=== PATIENT | female | born 1990 | race African-American/Black ===

== ENCOUNTER 2020-12-23 14:34 | Inpatient (IN) | payer OTHER ==
[~2020-12-23] VITALS: Ht 170.2 cm; Wt 97.7 kg
[2020-12-23] MEDS: LR 1,000 ML IV SCH ×2 (05:30→18:44)
[2020-12-23] MEDS ORDERED: PRENTAB9 PO (15:05)
[2020-12-23] MEDS ORDERED: HOME MED LIST COMPLETE! XX SCH (15:05)
[2020-12-23] MEDS ORDERED: LACTATED RINGER'S 1000 ML IV STA (15:07)
[2020-12-23] MEDS ORDERED: LIDOCAINE 1% MDV 20ML VIAL INFIL PRN (15:10)
[2020-12-23] MEDS ORDERED: TRANEXAMIC ACID INJection 1,000 MG in NS 100 ML IV PRN (15:10)
[2020-12-23] MEDS ORDERED: CARBOPROST TROMETHAMINE 250 MCG/ML AMP IM PRN (15:10)
[2020-12-23] MEDS ORDERED: METHYLERGONOVINE MALEATE 0.2 MG/ML VIAL (J2210) IM PRN (15:10)
[2020-12-23] MEDS ORDERED: OXYTOCIN DRIP 30 UNITS in IV 1 EA IV PRN ×4 (15:10)
[2020-12-23] MEDS ORDERED: miSOPROStol 25MCG 1/4 TABLET PO ONE (15:40)
[2020-12-23 15:55] VITALS: BP 118/58
[2020-12-23 16:44] VITALS: BP 100/55
[2020-12-23 17:51] LABS: HEMATOCRIT 39.3 % (36.0-47.0); HEMOGLOBIN 12.9 g/dl (12.0-15.5); MEAN CORPUSCULAR HEMOGLOBIN 31.6 pg (27.0-33.0); MEAN CORPUSCULAR HGB CONC 32.8 g/dl (32.0-36.5); MEAN CORPUSCULAR VOLUME 96.3 fl (80.0-96.0); PLATELET COUNT, AUTOMATED 249 10^3/uL (150-450); RED BLOOD COUNT 4.08 10^6/uL (4.00-5.40); WHITE BLOOD COUNT 8.9 10^3/uL (4.0-10.0)
[2020-12-23 18:01] VITALS: BP 125/65
[2020-12-23 19:14] VITALS: BP 117/55
[2020-12-23] MEDS ORDERED: BUPIVACAINE HCL 0.25% 10ML VIAL SC SCH (20:35)
[2020-12-23] MEDS ORDERED: ceFAZolin SOD 2 GM in IV 1 EA IV ONE (20:35)
[2020-12-23] MEDS ORDERED: BICITRA 30ML SOLN UDC PO ONE (20:35)
[2020-12-23] MEDS ORDERED: ePHEDrine SULFATE 25 MG/5 ML(5MG/ML) SYRINGE As Ordered ONE (20:49)
[2020-12-23] MEDS ORDERED: PHENYLephrine 500MCG 5ML (100MCG/ML) SYRINGE As Ordered ONE (20:49)
[2020-12-23] MEDS ORDERED: OXYTOCIN INJ 10 UNITS/ML VIAL (J2590) As Ordered ONE ×2 (20:51→20:53)
[2020-12-23] MEDS ORDERED: MORPHINE PRES-FREE INJ 10 MG/10 ML VIAL (J2274) As Ordered ONE (20:54)
[2020-12-23] MEDS ORDERED: KETOROLAC 60MG 2ML VIAL As Ordered ONE (21:17)
[2020-12-23] MEDS ORDERED: ONDANSETRON 4MG/2ML VIAL As Ordered ONE (21:17)
[2020-12-23] MEDS ORDERED: NALBUPHINE HCL 10 MG/ML AMP (J2300) IV PRN (21:29)
[2020-12-23] MEDS ORDERED: METOCLOPRAMIDE INJ 10MG/2ML VIAL (J2765 PER 1) IV PRN ×2 (21:29→23:00)
[2020-12-23] MEDS ORDERED: diphenhydrAMINE 50MG/ML VIAL (J1200) IV PRN (21:29)
[2020-12-23] MEDS ORDERED: ONDANSETRON 4MG/2ML VIAL IV PRN ×2 (21:29→23:00)
[2020-12-23] MEDS ORDERED: NALOXONE INJ 0.4MG/1ML VIAL (J2310 PER 1MG) IV PRN ×2 (21:29)
[2020-12-23 22:17] LABS: CORD GAS HCO3 A 25.4 MEQ/L; CORD GAS O2 SAT A 55.6 %; CORD GAS PCO2 A 58.5 mmHg; CORD GAS PH A 7.255 UNITS; CORD GAS PO2 A 25.3 mmHg; CORD GAS TCO2 A 27.2 MEQ/L
[2020-12-23 22:20] LABS: CORD GAS ABE V -1.7; CORD GAS HCO3 V 23.9 MEQ/L; CORD GAS O2 SAT V 92.6 %; CORD GAS PCO2 V 43.7 mmHg; CORD GAS PH V 7.356 UNITS; CORD GAS PO2 V 52.6 mmHg; CORD GAS SBC V 22.9 MEQ/L; CORD GAS TCO2 V 25.3 MEQ/L
[2020-12-23] MEDS ORDERED: LR 1,000 ML IV SCH (23:00)
[2020-12-23] MEDS ORDERED: PERCOCET 5MG/325MG TAB PO PRN (23:00)
[2020-12-23] MEDS ORDERED: fentaNYL 100 MCG/2 ML INJECTION IV PRN (23:00)
[2020-12-23] MEDS ORDERED: ANUSOL HC CREAM 30GM TOP PRN (23:10)
[2020-12-23] MEDS ORDERED: ACETAMINOPHEN TAB 650MG DOSE (2X325MG) PO PRN (23:10)
[2020-12-23] MEDS ORDERED: ACETAMINOPHEN 500 MG TAB PO PRN (23:10)
[2020-12-23] MEDS ORDERED: oxyCODONE 5MG TAB PO PRN (23:10)
[2020-12-24] VITALS (10 sets, daily range): BP systolic 115–147; BP diastolic 53–72
[2020-12-24] MEDS: IBUPROFEN 800 MG TAB PO SCH ×3 (06:00→21:45)
[2020-12-24] MEDS: LR 1,000 ML IV SCH (07:38)
[2020-12-24 07:48] LABS: HEMATOCRIT 33.6 % (36.0-47.0); MEAN CORPUSCULAR HEMOGLOBIN 31.2 pg (27.0-33.0); MEAN CORPUSCULAR HGB CONC 32.4 g/dl (32.0-36.5); MEAN CORPUSCULAR VOLUME 96.3 fl (80.0-96.0); PLATELET COUNT, AUTOMATED 223 10^3/uL (150-450); RED BLOOD COUNT 3.49 10^6/uL (4.00-5.40); WHITE BLOOD COUNT 13.8 10^3/uL (4.0-10.0)
[2020-12-24 08:00] LABS: HEMOGLOBIN 10.9 g/dl (12.0-15.5)
[2020-12-24 08:10] LABS: ALBUMIN 2.2 GM/DL (3.2-5.2); ALT/SGPT 14 U/L (12-78); BILIRUBIN,TOTAL 0.6 MG/DL (0.2-1.0); BLOOD UREA NITROGEN 8 MG/DL (7-18); CALCIUM LEVEL 8.8 MG/DL (8.5-10.1); CARBON DIOXIDE LEVEL 24 MEQ/L (21-32); CHLORIDE LEVEL 108 MEQ/L (98-107); GLOMERULAR FILTRATION RATE > 60.0 (>60); GLUCOSE, FASTING 99 MG/DL (70-100); POTASSIUM SERUM 4.2 MEQ/L (3.5-5.1); SODIUM LEVEL 140 MEQ/L (136-145); TOTAL PROTEIN 5.4 GM/DL (6.4-8.2)
[2020-12-24] MEDS: DOCUSATE SODIUM 100MG CAPSULE PO SCH ×2 (08:40→21:45)
[2020-12-24] MEDS: CLINDAMYCIN 150MG CAPSULE PO SCH ×3 (08:42→21:45)
[2020-12-24] MEDS: PRENATAL VITAMINS CHEWABLE TABLET PO SCH (08:42)
[2020-12-24] MEDS ORDERED: LR 500 ML IV ONE (10:25)
[2020-12-24] MEDS: oxyCODONE 5MG TAB PO PRN (18:41)
[2020-12-24] MEDS: SIMETHICONE 80MG CHEW TAB PO PRN (19:36)
[2020-12-25] MEDS: oxyCODONE 5MG TAB PO PRN ×2 (01:21→08:18)
[2020-12-25 02:00] VITALS: BP 129/59
[2020-12-25] MEDS: IBUPROFEN 800 MG TAB PO SCH ×2 (05:08→14:09)
[2020-12-25 06:00] VITALS: BP 125/58
[2020-12-25] MEDS: PRENATAL VITAMINS CHEWABLE TABLET PO SCH (07:52)
[2020-12-25] MEDS: DOCUSATE SODIUM 100MG CAPSULE PO SCH (07:52)
[2020-12-25] MEDS: CLINDAMYCIN 150MG CAPSULE PO SCH (07:52)
[2020-12-25] MEDS: SIMETHICONE 80MG CHEW TAB PO PRN (08:57)
== END 2020-12-25 14:50 | disposition home or self-care (01) | DRG 772 ==
LOC: M LDI 14:34 → M OBS 12-24 00:16
PROVIDERS: ADMIT Registered Nurse Maternal Newborn; ATTEND Registered Nurse Maternal Newborn
PROC: 3E0P7GC Introduction of Other Therapeutic Substance into Female Reproductive, Via Natural or Artificial Opening (ICD-10-PCS; 2020-12-23)
PROC: 0U9MXZZ Drainage of Vulva, External Approach (ICD-10-PCS; 2020-12-23)
PROC: 10D00Z1 Extraction of Products of Conception, Low, Open Approach (ICD-10-PCS; principal; 2020-12-23 20:45)
DX: O36.5930 Maternal care for other known or suspected poor fetal growth, third trimester, not applicable or unspecified (principal); N76.4 Abscess of vulva; O99.72 Diseases of the skin and subcutaneous tissue complicating childbirth; Z37.0 Single live birth; Z3A.38 38 weeks gestation of pregnancy; O99.214 Obesity complicating childbirth; E66.9 Obesity, unspecified; O76 Abnormality in fetal heart rate and rhythm complicating labor and delivery

== ENCOUNTER → 2021-02-02 | Outpatient (CLI) | payer OTHER ==
[~2021-02-02] MED LIST: PRENTAB9 PO
[2021-02-02 15:47] LABS: BASO % 0.3 % (0.0-1.0); EOS # 0.1 10^3/uL (0.0-0.5); EOS % 1.1 % (0.0-3.0); HEMATOCRIT 36.3 % (36.0-47.0); HEMOGLOBIN 11.5 g/dl (12.0-15.5); LYMPH # 1.3 10^3/uL (1.5-5.0); LYMPH % 20.8 % (24.0-44.0); MEAN CORPUSCULAR HEMOGLOBIN 30.6 pg (27.0-33.0); MEAN CORPUSCULAR HGB CONC 31.7 g/dl (32.0-36.5); MEAN CORPUSCULAR VOLUME 96.5 fl (80.0-96.0); MONO # 0.5 10^3/uL (0.0-0.8); MONO % 7.4 % (2.0-8.0); NEUTROPHILS # 4.4 10^3/uL (1.5-8.5); NEUTROPHILS % 70.1 % (36.0-66.0); PLATELET COUNT, AUTOMATED 293 10^3/uL (150-450); RED BLOOD COUNT 3.76 10^6/uL (4.00-5.40); WHITE BLOOD COUNT 6.3 10^3/uL (4.0-10.0)
[2021-02-02 15:54] LABS: INR 1.06; PROTHROMBIN TIME 14.2 SECONDS (12.7-14.5)
[2021-02-02 15:55] LABS: PARTIAL THROMBOPLASTIN TIME 33.7 SECONDS (25.9-37.0)
--- NOTE | 2021-02-02 16:00 | REP ---
INDICATION: ABN UTERINE VAG BLEED 6WKS POST PAR W/ C SECTIO/LABS 1ST. COMPARISON: None. TECHNIQUE: Transabdominal and transvaginal scanning performed. FINDINGS: Uterine dimensions are 11.2 x 5.5 x 6.9 cm. Endometrial echo is 5 mm in AP dimension and centrally placed. The myometrium demonstrates diffuse heterogeneous echotexture suggesting diffuse fibroid changes. Two focal fibroids in the region of the fundus have maximum diameters between 2 and 3 cm. In the anterior lower uterine segment at the expected site of a section there is heterogeneous increased echogenicity measuring 2.4 x 2.4 x 3.3 cm. I suspect this represents postsurgical change, although underlying fibroid change cannot be excluded. There is no endometrial fluid collection. No evidence of retained products of conception. The bladder measures 4.1 x 3.8 x 7.9cm. The right ovary has dimensions of 2.4 x 2.2 x 2.9 cm. It's Doppler flow is normal with a resistive index of 0.57. The left ovary dimensions are 4.3 x 2.1 x 3.4 cm. It's Doppler flow was normal with resistive index of 0.52. There is no adnexal mass identified. No free fluid is seen in the cul-de-sac. IMPRESSION: Fibroid changes in the uterus. Normal endometrial thickness, no evidence of endometrial fluid collection or retained products of conception. In the anterior lower uterine segment at the expected Caesarean section site there is an area of heterogeneous increased echogenicity which may represent postsurgical change, although underlying fibroid change cannot be excluded. <Electronically signed by Wilmer Byrd > 02/02/21 [id number]
[2021-02-02 16:17] LABS: ALBUMIN 3.6 GM/DL (3.2-5.2); ALT/SGPT 21 U/L (12-78); BILIRUBIN,TOTAL 0.5 MG/DL (0.2-1.0); BLOOD UREA NITROGEN 12 MG/DL (7-18); CALCIUM LEVEL 9.3 MG/DL (8.5-10.1); CARBON DIOXIDE LEVEL 28 MEQ/L (21-32); CHLORIDE LEVEL 114 MEQ/L (98-107); CREATININE FOR GFR 0.92 MG/DL (0.55-1.30); FERRITIN 39 NG/ML (8-252); GLOMERULAR FILTRATION RATE > 60.0 (>60); GLUCOSE, FASTING 82 MG/DL (70-100); IRON (FE) 54 UG/DL (50-170); PERCENT SATURATION 17.9 % (13.2-45.0); POTASSIUM SERUM 3.7 MEQ/L (3.5-5.1); SODIUM LEVEL 144 MEQ/L (136-145); TOTAL IRON BINDING CAPACITY 301 UG/DL (250-450); TOTAL PROTEIN 7.4 GM/DL (6.4-8.2)
== END ==
LOC: M RAD 14:55
PROVIDERS: ATTEND Physician Assistant
DX: N93.9 Abnormal uterine and vaginal bleeding, unspecified (principal)